=== PATIENT | female | born 1975 | race Hispanic/Latino ===

== ENCOUNTER 2017-06-15 07:50 | Emergency (ER) | payer SELFPAY ==
[2017-06-15 07:56] VITALS: BP 150/94
[2017-06-15] MEDS ORDERED: TORADOL IM ONE (08:24)
--- NOTE | 2017-06-15 08:32 | Emergency Department Report ---
ED Lower Extremity HPI - General Chief Complaint: Extremity Injury, Lower Stated Complaint: ANKLE INJURY Time Seen by Provider: 06/15/17 08:09 Source: patient Mode of arrival: Ambulatory Limitations: No Limitations - History of Present Illness Initial Comments: This is a 41-year-old female nontoxic, well nourished in appearance, no acute signs of distress presents to the ED with c/o of right ankle pain. Patient stated she was walking down the stairs this morning and twisted her ankle and developed sharp pain. Patient denies any trauma to the region. Denies any fever , chills, numbness, tingling, chest pain, shortness of breathe, headache, stiff neck, joint swelling, joint redness, n/v. Patient describes pain as aching with level of 8/10. Patient states allergies to Phenergan. Denies PMH. MD Complaint: ankle injury -: This morning Injury: Ankle: Right Type of Injury: inversion Place: home Severity: mild Severity scale (0 -10): 8 Improves With: nothing Worsens With: nothing Context: other (twisting) Associated Symptoms: able to partially bear weight, ambulatory. denies: snap/ pop sensation, swelling, numbness, tingling, unable to bear weight - Related Data Previous Rx's Medication Instructions Recorded Last Taken Type Ibuprofen [Motrin] 600 mg PO Q8H PRN #30 tablet 06/15/17 Unknown Rx Allergies Allergy/AdvReac Type Severity Reaction Status Date / Time promethazine [From Phenergan] AdvReac Swelling Verified 06/15/17 07:56 ED Review of Systems ROS: Stated complaint: ANKLE INJURY Other details as noted in HPI Constitutional: denies: chills, fever Eyes: denies: eye pain, eye discharge, vision change ENT: denies: ear pain, throat pain Respiratory: denies: cough, shortness of breath, wheezing Cardiovascular: denies: chest pain, palpitations Endocrine: no symptoms reported Gastrointestinal: denies: abdominal pain, nausea, diarrhea Genitourinary: denies: urgency, dysuria, discharge Musculoskeletal: denies: back pain, joint swelling, arthralgia Skin: denies: rash, lesions Neurological: denies: headache, weakness, paresthesias Psychiatric: denies: anxiety, depression Hematological/Lymphatic: denies: easy bleeding, easy bruising ED Past Medical Hx - Past Medical History Previous Medical History?: No - Surgical History Past Surgical History?: Yes Hx Cholecystectomy: Yes Additional Surgical History: tubal ligation. tonsillectomy - Social History Smoking Status: Current Every Day Smoker Substance Use Type: None - Medications Home Medications: Home Medications Medication Instructions Recorded Confirmed Last Taken Type Ibuprofen [Motrin] 600 mg PO Q8H PRN #30 tablet 06/15/17 Unknown Rx ED Physical Exam - General Limitations: No Limitations General appearance: alert, in no apparent distress - Head Head exam: Present: atraumatic, normocephalic, normal inspection - Eye Eye exam: Present: normal appearance, PERRL, EOMI. Absent: scleral icterus, conjunctival injection, nystagmus, periorbital swelling, periorbital tenderness Pupils: Present: normal accommodation - ENT ENT exam: Present: normal exam, normal orophraynx, mucous membranes moist, TM's normal bilaterally, normal external ear exam - Neck Neck exam: Present: normal inspection, full ROM. Absent: tenderness, meningismus, lymphadenopathy, thyromegaly - Respiratory Respiratory exam: Present: normal lung sounds bilaterally. Absent: respiratory distress, wheezes, rales, rhonchi, stridor, chest wall tenderness, accessory muscle use, decreased breath sounds, prolonged expiratory - Cardiovascular Cardiovascular Exam: Present: regular rate, normal rhythm, normal heart sounds. Absent: bradycardia, tachycardia, irregular rhythm, systolic murmur, diastolic murmur, rubs, gallop - GI/Abdominal GI/Abdominal exam: Present: soft, normal bowel sounds. Absent: distended, tenderness, guarding, rebound, rigid, diminished bowel sounds - Rectal Rectal exam: Present: deferred - Extremities Exam Extremities exam: Present: normal inspection, full ROM, tenderness, normal capillary refill. Absent: pedal edema, joint swelling, calf tenderness - Expanded Lower Extremity Exam Left Hip exam: Present: normal inspection, full ROM Upper Leg exam: Present: normal inspection, full ROM Knee exam: Present: normal inspection, full ROM Lower Leg exam: Present: normal inspection, full ROM Ankle exam: Present: normal inspection, full ROM, tenderness, swelling. Absent : abrasion, laceration, ecchymosis, deformity, crepidus, erythema, anterior draw sign Foot/Toe exam: Present: normal inspection, full ROM. Absent: tenderness, swelling, abrasion, laceration, ecchymosis, deformity, crepidus, dislocation, erythema, amputation, puncture wound, foreign body, calcaneal tenderness, tenderness at base of 5th metatarsal, nail avulsion, subungual hematoma Neuro vascular tendon exam: Present: no vascular compromise. Absent: pulse deficit, abnormal cap refill, motor deficit, sensory deficit, tendon deficit, extremity cold to touch, pallor, abnormal 2-point discrimination, decreased fine /light touch, foot drop, peroneal nerve deficit, significant pain with passive ROM of distal joint Gait: Positive: observed and limited by pain 1 - pain and swelling - Back Exam Back exam: Present: normal inspection, full ROM. Absent: tenderness, CVA tenderness (R), CVA tenderness (L), muscle spasm, paraspinal tenderness, vertebral tenderness, rash noted - Neurological Exam Neurological exam: Present: alert, oriented X3, CN II-XII intact, normal gait, reflexes normal - Psychiatric Psychiatric exam: Present: normal affect, normal mood - Skin Skin exam: Present: warm, dry, intact, normal color. Absent: rash - Other Other exam information: No joint redness of right ankle. Not warm to touch. No cellulitis noted. ED Course Vital Signs 06/15/17 07:52 Temperature 97.6 F Pulse Rate 88 Respiratory 16 Rate Blood Pressure 150/94 O2 Sat by Pulse 100 Oximetry - Reevaluation(s) Reevaluation #1: 06/15/17 08:32 Patient is speaking in full sentences with no signs of distress noted. ED Lower Extremity MDM - Medical Decision Making This is a 41-year-old female that presents with right ankle sprain. Patient was examined by me and patient is stable. Xray has been obtained and dictated by radiologist with density in the talar naviucalr joint porbably represent old injurty or detachment osteophyte. Dr. Low has been consulted by patient history, physical examination and x-ray imaging and agrees to the plan of care and ED with discharge follow-up. Patient was notified of xray results with no further questions noted by the patient. Patient received Toradol 30 mg IM. Patient also received Ice to the extremity. Patient was instructed to RICE therapy. Pt received ankle stirrup and crutches at d/c. Patient was instructed Follow-up with a primary care doctor/orthopedic doctor in 3-5 days or if symptoms worsen and continue return to emergency room as soon as possible. At time time of discharge, the patient does not seem toxic or ill in appearance. No acute signs of distress noted. Patient agrees to discharge treatment plan of care. No further questions noted by the patient. Critical care attestation.: If time is entered above; I have spent that time in minutes in the direct care of this critically ill patient, excluding procedure time. ED Disposition Clinical Impression: Right ankle sprain Qualifiers: Encounter type: initial encounter Involved ligament of ankle: unspecified ligament Qualified Code(s): S93.401A - Sprain of unspecified ligament of right ankle, initial encounter Disposition: TO HOME OR SELFCARE Is pt being admited?: No Does the pt Need Aspirin: No Condition: Stable Instructions: Ibuprofen (By mouth), Ankle Sprain (ED), Crutch Instructions (ED) , Ankle Stirrup Splint (ED), RICE Therapy (ED) Additional Instructions: Follow-up with a primary care doctor/orthopedic doctor in 3-5 days or if symptoms worsen and continue return to emergency room as soon as possible. Rest, elevated, and ice extremity. Prescriptions: Ibuprofen [Motrin] 600 mg PO Q8H PRN #30 tablet PRN Reason: Pain Referrals: PRIMARY MD LEONOR [Primary Care Provider] - 3-5 Days BRODY PULLIAM MD [Staff Physician] - 3-5 Days [facility] [Outside] - 3-5 Days [facility] [Outside] - 3-5 Days Forms: Work/School Release Form(ED)
--- NOTE | 2017-06-15 09:01 | XRay Report ---
Right ankle 3 views: History: Pain. Findings: No bony or articular abnormality the talotibial joint and the subtalar joint. The small osteophyte/calcification at the dorsal aspect of the talonavicular joint and the navicular articular surface. Impression: Density in the talar navicular joint probably represent old injury or detachment osteophyte.
== END 2017-06-15 09:49 | disposition home or self-care (01) ==
LOC: ED 07:50
DX: S93.401A Sprain of unspecified ligament of right ankle, initial encounter (principal); F17.200 Nicotine dependence, unspecified, uncomplicated; X58.XXXA Exposure to other specified factors, initial encounter; Y93.01 Activity, walking, marching and hiking; Y99.8 Other external cause status; Y92.098 Other place in other non-institutional residence as the place of occurrence of the external cause; Z90.89 Acquired absence of other organs; Z98.51 Tubal ligation status; Z90.49 Acquired absence of other specified parts of digestive tract; Z88.8 Allergy status to other drugs, medicaments and biological substances
CPT/HCPCS: 29515; 73610; 96372; 99284; J1885

== ENCOUNTER 2017-11-25 20:18 | Emergency (ER) | payer SELFPAY ==
[2017-11-25] MEDS ORDERED: MORPHINE IV ONE (20:58)
[2017-11-25] MEDS ORDERED: ZOFRAN IV ONE (20:58)
[2017-11-25] MEDS ORDERED: NACL 0.9% 1000 ML 1,000 ML IV ONE (20:58)
--- NOTE | 2017-11-25 21:03 | Emergency Department Report ---
ED Abdominal Pain HPI - General Chief Complaint: Abdominal Pain Stated Complaint: ABD PAIN Time Seen by Provider: 11/25/17 20:53 Source: patient Mode of arrival: Ambulatory Limitations: No Limitations - History of Present Illness Initial Comments: Patient is a 39 years old female with no significant past medical history. Patient presented to the ER complaining of right lower quadrant pain since yesterday. Patient stated that pain associated with nausea but no vomiting. Patient denied any fever. MD Complaint: abdominal pain -: days(s) Location: RLQ Radiation: none Migration to: no migration Severity scale (0 -10): 7 Quality: sharp Associated Symptoms: nausea - Related Data Previous Rx's Medication Instructions Recorded Last Taken Type Ibuprofen [Motrin] 600 mg PO Q8H PRN #30 tablet 06/15/17 Unknown Rx Allergies Allergy/AdvReac Type Severity Reaction Status Date / Time promethazine [From Phenergan] AdvReac Swelling Verified 06/15/17 07:56 ED Review of Systems ROS: Stated complaint: ABD PAIN Other details as noted in HPI Comment: All other systems reviewed and negative Constitutional: denies: chills, fever Respiratory: denies: cough, shortness of breath, SOB with exertion, SOB at rest , wheezing Cardiovascular: denies: chest pain, palpitations, dyspnea on exertion Gastrointestinal: abdominal pain, nausea. denies: vomiting, diarrhea, constipation, hematemesis, melena, hematochezia Genitourinary: denies: dysuria, frequency, hematuria Neurological: denies: weakness, numbness, paresthesias, confusion, abnormal gait , vertigo ED Past Medical Hx - Past Medical History Previous Medical History?: No - Surgical History Past Surgical History?: Yes Hx Cholecystectomy: Yes Additional Surgical History: tubal ligation. tonsillectomy - Social History Smoking Status: Current Every Day Smoker Substance Use Type: None - Medications Home Medications: Home Medications Medication Instructions Recorded Confirmed Last Taken Type Ibuprofen [Motrin] 600 mg PO Q8H PRN #30 tablet 06/15/17 Unknown Rx ED Physical Exam - General Limitations: No Limitations General appearance: alert, in no apparent distress - Head Head exam: Present: atraumatic, normocephalic, normal inspection - Eye Eye exam: Present: normal appearance, PERRL - ENT ENT exam: Present: normal exam, normal orophraynx, mucous membranes dry. Absent : mucous membranes moist, TM's normal bilaterally - Neck Neck exam: Present: normal inspection, full ROM. Absent: tenderness, meningismus, lymphadenopathy, thyromegaly - Respiratory Respiratory exam: Present: normal lung sounds bilaterally. Absent: respiratory distress, wheezes, rales, rhonchi, accessory muscle use, decreased breath sounds , prolonged expiratory - Cardiovascular Cardiovascular Exam: Present: regular rate, normal rhythm, normal heart sounds - GI/Abdominal GI/Abdominal exam: Present: soft, normal bowel sounds. Absent: distended, tenderness, guarding, rebound, rigid, organomegaly, mass, bruit, pulsatile mass , hernia - Extremities Exam Extremities exam: Present: normal inspection, full ROM, normal capillary refill - Back Exam Back exam: Present: normal inspection, full ROM. Absent: tenderness, CVA tenderness (R), CVA tenderness (L), muscle spasm, paraspinal tenderness, vertebral tenderness - Neurological Exam Neurological exam: Present: alert, oriented X3, CN II-XII intact, normal gait - Skin Skin exam: Present: warm, intact, normal color ED Course Vital Signs 11/25/17 11/25/17 11/25/17 20:27 21:32 22:19 Temperature 97.8 F Pulse Rate 110 H 91 H Respiratory 20 20 18 Rate Blood Pressure 160/123 Blood Pressure 160/83 [Left] O2 Sat by Pulse 99 99 97 Oximetry - Reevaluation(s) Reevaluation #1: 11/26/17 00:40 Patient stated that she is feeling much better. I informed her CT abdomen and pelvis results and advised her to follow-up with a set up / operator. I also advised the patient to return to the ER if her symptoms are not improving. ED Medical Decision Making - Lab Data Result diagrams: 11/25/17 20:49 11/25/17 20:49 - Radiology Data Radiology results: report reviewed Referring Physician: ELVIS ZAYAS Patient Name: BIBIANA PARK Date of : 1977-12-26 Sex: Female Report Date: 2017-11-25 Report Status: Finalized Findings [facility] [address] [place] [address] Cat Scan Report Signed Patient: BIBIANA PARK MR#: [id number] : 12/26/1977 Acct:[id number] Age/Sex: 39 / F ADM Date: 11/25/17 Loc: ED Attending Dr: Ordering Physician: ELVIS ZAYAS Date of Service: 11/25/17 Procedure(s): CT abdomen pelvis w con Accession Number(s): [id number] cc: ELVIS ZAYAS FINAL REPORT PROCEDURE: CT ABDOMEN PELVIS W CON TECHNIQUE: Computerized axial tomography of the abdomen and pelvis was performed after the IV injection of iodinated nonionic contrast. HISTORY: abdominal pain COMPARISON: No prior studies are available for comparison. FINDINGS: Visualized lower thorax: No significant abnormality. Liver: Normal size and attenuation. Spleen: Normal size and attenuation. Gallbladder and biliary system: Cholecystectomy clips. Pancreas: Normal. Adrenals: Normal. Kidneys: Normal. GI tract: Normal. Lymph nodes and mesentery: Normal. Vasculature: Normal. Bladder: Normal. Reproductive organs: Normal uterus. Adnexal follicles. Peritoneum: No free fluid. Musculoskeletal structures: No significant abnormality. Other: None. IMPRESSION: No mass or obstruction. No hydronephrosis. Transcribed By: BRP Dictated By: DALE ESPINAL MD Electronically Authenticated By: DALE ESPINAL MD Signed Date/Time: 11/25/172214 DD/ 14 TD/TT: 11/25/172214 Critical care attestation.: If time is entered above; I have spent that time in minutes in the direct care of this critically ill patient, excluding procedure time. ED Disposition Clinical Impression: Abdominal pain, Ovarian cyst Disposition: - TO HOME OR SELFCARE Is pt being admited?: No Condition: Stable Instructions: Abdominal Pain (ED), Ovarian Cyst (ED) Referrals: NATAN SOLIS MD [Primary Care Provider] - 3-5 Days ODETTE WALSH MD [Staff Physician] - 3-5 Days
[2017-11-25 21:11] LABS: Basophils % (Auto) 0.5 % (0.0-1.8); Eosinophils # (Auto) 0.1 K/mm3 (0.0-0.4); Eosinophils % (Auto) 1.2 % (0.0-4.3); Hematocrit 40.1 % (30.3-42.9); Hemoglobin 13.3 gm/dl (10.1-14.3); Lymphocytes # (Auto) 3.8 K/mm3 (1.2-5.4); Lymphocytes % (Auto) 40.9 % (13.4-35.0); Mean Corpuscular HGB Conc 33 % (30-34); Mean Corpuscular Hemoglobin 32 pg (28-32); Mean Corpuscular Volume 96 fl (79-97); Monocytes # (Auto) 0.7 K/mm3 (0.0-0.8); Monocytes % (Auto) 7.2 % (0.0-7.3); Platelet Count 255 K/mm3 (140-440); Red Blood Count 4.18 M/mm3 (3.65-5.03); Red Cell Distribution Width 13.7 % (13.2-15.2)
[2017-11-25 21:21] LABS: Alanine Aminotransferase 14 units/L (7-56); Albumin 4.2 g/dL (3.9-5); BUN/Creatinine Ratio 12; Blood Urea Nitrogen 6 mg/dL (7-17); Calcium 8.8 mg/dL (8.4-10.2); Hemolysis Index 8
[2017-11-25] MEDS ORDERED: NACL ONE (21:28)
[2017-11-25 22:20] VITALS: BP 160/83
--- NOTE | 2017-11-25 22:21 | Cat Scan Report ---
FINAL REPORT PROCEDURE: CT ABDOMEN PELVIS W CON TECHNIQUE: Computerized axial tomography of the abdomen and pelvis was performed after the IV injection of iodinated nonionic contrast. HISTORY: abdominal pain COMPARISON: No prior studies are available for comparison. FINDINGS: Visualized lower thorax: No significant abnormality. Liver: Normal size and attenuation. Spleen: Normal size and attenuation. Gallbladder and biliary system: Cholecystectomy clips. Pancreas: Normal. Adrenals: Normal. Kidneys: Normal. GI tract: Normal. Lymph nodes and mesentery: Normal. Vasculature: Normal. Bladder: Normal. Reproductive organs: Normal uterus. Adnexal follicles. Peritoneum: No free fluid. Musculoskeletal structures: No significant abnormality. Other: None. IMPRESSION: No mass or obstruction. No hydronephrosis.
[2017-11-25 22:47] LABS: Bilirubin,Urine NEG (Negative); Blood,Urine SM (Negative); Color,Urine Straw (Yellow); Protein,Urine <15 mg/dL mg/dL (Negative); RBC,Urine < 1.0 /HPF (0.0-6.0); Urobilinogen,Urine < 2.0 mg/dL (<2.0)
[2017-11-25] MEDS ORDERED: ZOFRAN ONE (23:54)
[2017-11-25] MEDS ORDERED: MORPHINE ONE (23:54)
[2017-11-26] MEDS ORDERED: MORPHINE IV ONE (00:13)
[2017-11-26] MEDS ORDERED: ZOFRAN IV ONE (00:15)
== END 2017-11-26 01:14 | disposition home or self-care (01) ==
LOC: ED 20:18
DX: N83.209 Unspecified ovarian cyst, unspecified side (principal); F17.200 Nicotine dependence, unspecified, uncomplicated
CPT/HCPCS: 36415; 74177; 80053; 81001; 84703; 85025; 86850; 86900; 86901; 96361; 96374; 96375; 96376; 99284; J2270; J2405; J7030; Q9967

== ENCOUNTER 2019-09-13 22:01 | Emergency (ER) | payer OTHER ==
[2019-09-13 22:20] VITALS: BP 127/84
[2019-09-13] MEDS ORDERED: IBUPROFEN 600 MG TAB PO ONE ×2 (22:28→22:32)
--- NOTE | 2019-09-13 23:06 | XRay Report ---
LEFT RING FINGER 3 VIEWS INDICATION / CLINICAL INFORMATION: Crush injury of left ring finger with secondary pain/laceration. COMPARISON: None available. FINDINGS: BONES and JOINT(S): There is a comminuted fracture of the tuft of the distal phalanx of the ring fing er. No dislocation. No significant arthritis. SOFT TISSUES: A probable laceration is seen dorsally along the ring finger at the level of the distal phalanx. There is generalized edema along the ring finger without visualization of radiopaque foreig n bodies. ADDITIONAL FINDINGS: None. IMPRESSION: Acute left ring finger fracture and soft tissue injury as above. Signer Name: Gerald Silverman MD Signed: 09/13/2019 11:01 PM Workstation Name: [id number]
[2019-09-13] MEDS ORDERED: ONDANSETRON 4 MG ODT TAB PO ONE (23:14)
[2019-09-13] MEDS ORDERED: ceFAZolin 1 GM VIAL IM ONE (23:14)
[2019-09-13] MEDS ORDERED: HYDROcodone/ACETAMINOPHEN 5-325 MG TAB PO ONE (23:14)
[2019-09-13] MEDS ORDERED: LIDOCAINE-MPF (1%) 10 MG/1 ML VIAL 5 ML INFILTRATI ONE (23:15)
[2019-09-13] MEDS ORDERED: ONDANSETRON 4 MG ODT TAB ONE (23:16)
[2019-09-13] MEDS ORDERED: HYDROcodone/ACETAMINOPHEN 5-325 MG TAB ONE (23:16)
[2019-09-14] MEDS ORDERED: NEOMY 3.5 MG/BACIT 400 UNITS/POLY B 5000 UNITS/GM OINT PACKET TP ONE ×2 (01:15)
--- NOTE | 2019-09-14 01:37 | Emergency Department Report ---
Upper Extremity - HPI Chief Complaint: Wound/Laceration Stated Complaint: LEFT FINGER LACERATION Upper Extremity: Left Ring Finger (bleeding swollen dorsal left ring finger laceration) Occurred When: Today Mechanism: Hit with Object, Crush Severity: severe Symptoms: Yes Pain with Movement, Yes Limited Range of Movement (due to pain), Yes Swelling, Yes Laceration or Abrasion (dorsal left index finger laceration), No Deformity, No Numbness, No Weakness, No Bruising/Ecchymosis Other History: Patient is a 41-year-old white female with no past medical history who presents to the ED with complaint of acute onset painful swollen bleeding left ring finger laceration after wooden planks crashed her left ring finger at work about 3 hours ago. Patient states that she was lifting wooden planks and putting in a machine at work when the wooden planks slipped off her hand and crashed onto her left ring finger causing the laceration. Patient stat es that she is not up-to-date with her tetanus vaccinations. Patient denies numbness and tingling or weakness of left hand or left ring finger, dizziness, loss of consciousness, nausea and vomiting or shortness of breath. ED Review of Systems ROS: Stated complaint: LEFT FINGER LACERATION Other details as noted in HPI Constitutional: denies: chills, fever Eyes: denies: eye pain, eye discharge, vision change ENT: denies: ear pain, throat pain Respiratory: denies: cough, shortness of breath, wheezing Cardiovascular: denies: chest pain, palpitations Endocrine: no symptoms reported Gastrointestinal: denies: abdominal pain, nausea, diarrhea Genitourinary: denies: urgency, dysuria, discharge Musculoskeletal: arthralgia (dorsal distal left ring finger laceration and pain). denies: back pain, joint swelling Skin: other (Bleeding dorsal distal left ring finger laceration with pain). denies: rash, lesions Neurological: denies: headache, weakness, paresthesias Psychiatric: denies: anxiety, depression Hematological/Lymphatic: denies: easy bleeding, easy bruising ED Past Medical Hx - Past Medical History Previous Medical History?: No Additional medical history: ELEVATED CHOLESTEROL - Surgical History Hx Cholecystectomy: Yes Additional Surgical History: tubal ligation. tonsillectomy - Social History Smoking Status: Current Every Day Smoker Substance Use Type: None - Medications Home Medications: Home Medications Medication Instructions Recorded Confirmed Last Taken Type Ondansetron [Zofran Odt] 4 mg PO Q8HR PRN #14 tab.rapdis 11/26/17 Unknown Rx Ibuprofen [Motrin 600 MG tab] 600 mg PO Q8H PRN #30 tablet 09/14/19 Unknown Rx cephALEXin [Keflex] 500 mg PO Q6HR #40 capsule 09/14/19 Unknown Rx traMADoL [Ultram 50 MG tab] 50 mg PO Q4HR PRN #14 tablet 09/14/19 Unknown Rx Upper Extremity Exam - Exam General: Vital signs noted. No distress. Alert and acting appropriately. Head and Torso: No HEENT Abnormality, No Neck Tenderness, No Chest/Lungs Abnormality, No Abdominal Tenderness, No Back Tenderness Shoulder Exam: Yes Normal Range of Motion in Shoulder, No Shoulder Tenderness, No Clavicle Tenderness, No Shoulder Deformity, No AC Joint Tenderness Arm Exam: No Arm/Humerus Tenderness, No Arm Deformity Elbow: Yes Normal Range of Motion in Elbow, No Elbow Tenderness, No Elbow Deformity Forearm: No Forearm Tenderness, No Forearm Deformity, No Pain with Pronation, No Pain with Supination Wrist: Yes Normal ROM in Wrist, No Wrist Tenderness, No Wrist Deformity, No Snuffbox Tenderness, No Pain with Axial Thumb Compression Hand: Yes Hand Tenderness (Left), Yes Digit Tenderness (Distal left ring finger tenderness due to bleeding laceration), Yes Normal ROM in Digit(s) (Limited range of motion of left ring finger due to pain), No Hand Deformity, No Digit(s) Deformity, No Tendon Dysfunction CMS Exam: Yes Broken Skin (Dorsal distal left ring finger bleeding 3 cm lac eration), Yes Normal Distal Pulses, Yes Normal Capillary Refill, Yes Normal Distal Sensation ED Course Vital Signs 09/13/19 09/13/19 22:18 23:00 Temperature 97.6 F Pulse Rate 85 Respiratory 18 18 Rate Blood Pressure 127/84 O2 Sat by Pulse 98 Oximetry - Laceration /Wound Repair Left Distal Finger Wound Location: upper extremity (dorsal left ring finger ) Wound Length (cm): 3 Wound's Depth, Shape: superficial, linear Wound Explored: contaminated Irrigated w/ Saline (ccs): 50 Betadine Prep?: Yes Anesthesia: 1% Lidocaine Volume Anesthetic (ccs): 5 Wound Debrided: extensive Wound Repaired With: sutures Suture Size/Type: 4:0, proline Number of Sutures: 7 Layer Closure?: No Sterile Dressing Applied?: Yes Progress: Patient had the distal dorsal left ring finger laceration wound cleaned thoroughly and local anesthetic applied. The wound was then sutured per protocol and the patient tolerated the procedure well. Neosporin ointment was applied to the sutured wound and a finger splint applied after dressing with 4 x 4 gauze. The left ring finger was then dressed appropriately with Kerlix and the patient was discharged home on pain medications and prophylactic antibiotics and was given a referral to the orthopedic surgeon Dr. Hollins for follow-up. Patient was advised to contact Dr. Hollins's office first thing in the morning to schedule a follow-up appointment. ED Medical Decision Making - Radiology Data Radiology results: report reviewed, image reviewed Findings [facility] [address] [place] [address] XRay Report Signed Patient: BIBIANA PARK MR#: [id number] : 12/26/1977 Acct:[id number] Age/Sex: 41 / F ADM Date: 09/13/19 Loc: ED Attending Dr: Ordering Physician: LOIS BARDALES NP Date of Service: 09/13/19 Procedure(s): XR finger(s) 2+V LT Accession Number(s): [id number] cc: LOIS BARDALES NP Fluoro Time In Minutes: LEFT RING FINGER 3 VIEWS INDICATION / CLINICAL INFORMATION: Crush injury of left ring finger with secondary pain/laceration. COMPARISON: None available. FINDINGS: BONES and JOINT(S): There is a comminuted fracture of the tuft of the distal phalanx of the ring finger. No dislocation. No significant arthritis. SOFT TISSUES: A probable laceration is seen dorsally along the ring finger at the level of the distal phalanx. There is generalized edema along the ring finger without visualization of radiopaque foreign bodies. ADDITIONAL FINDINGS: None. IMPRESSION: Acute left ring finger fracture and soft tissue injury as above. Signer Name: Gerald Silverman MD Signed: 09/13/2019 11:01 PM Workstation Name: [id number] Transcribed By: GERALDO Dictated By: Gerald Silverman MD Electronically Authenticated By: Gerald Silverman MD Signed Date/Time: 09/13/192300 DD/ 58 TD/TT: - Medical Decision Making This is a 41-year-old white female who presented to the ED with distal dorsal left ring finger laceration after a crush injury at work. In the ED, patient is alert and oriented x3 and is not in distress but appears to be in significant pain. Patient was treated for pain in the ED and also received booster tetanus vaccination. Left hand x-ray shows a comminuted fracture of the tuft of the distal phalanx of the ring finger. No dislocation. No significant arthritis. There is also a probable laceration is seen dorsally along the ring finger at t he level of the distal phalanx. There is generalized edema along the ring finger without visualization of radiopaque foreign bodies. The dorsal distal left ring finger laceration was cleaned thoroughly and sutured per protocol, and Neosporin ointment was applied to the sutured wound and the wound dressed appropriately and reinforced with a finger splint. Patient also received Ancef 1 g intramuscular injection. On reevaluation, patient's pain is well controlled with medications. Patient was discharged home on pain medications and prophylactic antibiotics and was referred to the orthopedic surgeon energy operations vice president Dr. Hollins for follow-up. Patient was advised to contact Dr. Hollins's office first thing this morning to schedule follow-up appointment. Patient was also advised to return to the ED immediately if symptoms get worse. - Differential Diagnosis finger fracture; hand contusion; laceration; finger sprain Critical care attestation.: If time is entered above; I have spent that time in minutes in the direct care of this critically ill patient, excluding procedure time. ED Disposition Clinical Impression: Displaced fracture of distal phalanx of left ring finger, initial encounter for closed fracture Laceration of left ring finger w/o foreign body w/o damage to nail Qualifiers: Encounter type: initial encounter Qualified Code(s): S61.215A - Laceration without foreign body of left ring finger without damage to nail, initial encounter Disposition: DC-01 TO HOME OR SELFCARE Is pt being admited?: No Does the pt Need Aspirin: No Condition: Stable Instructions: Finger Fracture (ED), Finger Laceration (ED) Additional Instructions: Take medications with food, drink plenty of fluids and follow-up with the orthopedic surgeon Dr. Hollins for further evaluation and treatment. Contact Dr. Hollins's office first thing this morning to schedule a follow-up appointment. Return to the ED immediately if his symptoms get worse. Otherwise return to the ED in 12 to 14 days for suture removal. Prescriptions: cephALEXin [Keflex] 500 mg PO Q6HR #40 capsule Ibuprofen [Motrin 600 MG tab] 600 mg PO Q8H PRN #30 tablet PRN Reason: Pain traMADoL [Ultram 50 MG tab] 50 mg PO Q4HR PRN #14 tablet PRN Reason: Pain Referrals: BRODY HOLLINS MD [Staff Physician] - JEAN MARIE Forms: Work/School Release Form(ED) Time of Disposition: 01:46 Print Language: [place] ISLAND[place]
== END 2019-09-14 02:15 | disposition home or self-care (01) ==
LOC: ED 22:01
DX: S61.215A Laceration without foreign body of left ring finger without damage to nail, initial encounter (principal); S62.635A Displaced fracture of distal phalanx of left ring finger, initial encounter for closed fracture; F17.200 Nicotine dependence, unspecified, uncomplicated; E78.00 Pure hypercholesterolemia, unspecified; Z98.51 Tubal ligation status; Z90.89 Acquired absence of other organs; Z79.899 Other long term (current) drug therapy; Z88.6 Allergy status to analgesic agent
CPT/HCPCS: 12032; 73140; 96372; 99283; J0690; A6250; Q0162

== ENCOUNTER 2021-07-31 11:53 | Emergency (ER) | payer SELFPAY | END 2021-07-31 11:55 | disposition left against medical advice (07) | LOC: ED 11:53 | DX: S89.90XA Unspecified injury of unspecified lower leg, initial encounter (principal); Z53.21 Procedure and treatment not carried out due to patient leaving prior to being seen by health care provider; X58.XXXA Exposure to other specified factors, initial encounter; Y93.89 Activity, other specified; Y92.89 Other specified places as the place of occurrence of the external cause; Y99.8 Other external cause status ==